=== PATIENT | female | born 1960 | race African-American/Black ===

== ENCOUNTER 2018-03-13 14:23 | Inpatient (IN) ==
[2018-03-13 15:22] LABS: Apearance,Urine CLOUDY (Clear); Bilirubin,Urine Negative (Negative); Blood, Urine Negative (Negative); Glucose,Urine (UA) Negative (Negative); Ketones,Urine Negative (Negative); Mucus,Urine Moderate /LPF (Occasional); Nitrite,Urine Negative (Negative); Protein,Urine Negative; RBC,Urine 2 /HPF (0-4); Squamous Epithelial Cell,Urine Occasional /HPF (0-10); Urine Color Yellow (Yellow); Urine Specific Gravity 1.021 (1.001-1.035); Urine Urobilinogen < 2.0 EU/DL (0.2-1.0); WBC,Urine 1 /HPF (0-6)
[2018-03-13 15:41] LABS: Basophils % 0.2 % (0.0-0.8); Hematocrit 41.9 VOL% (35.7-47.0); Hemoglobin 12.8 GM/DL (12.0-16.0); Immature Granulocytes % 0.4 %; Immature Granulocytes Absolute 0.03 #; Lymphocytes # 0.3 10*3/uL (1.4-4.0); Lymphocytes % 4.1 % (21.3-54.2); Mean Corpuscular HGB Conc 30.5 GM/DL (32-36); Mean Corpuscular Hemoglobin 25 PG (27-34); Mean Corpuscular Volume 82.3 FL (87-102); Mean Platelet Volume 10.5 FL (9.6-12.0); Monocytes # 0.6 10*3/uL (0.11-0.8); Monocytes % 6.8 % (1.7-12.7); Neutrophils # 7.2 10*3/uL (1.4-7.4); Neutrophils % 88.5 % (38.7-73.9); Platelet Count 222 T/CUMM (130-400); Red Blood Count 5.09 MC/CUMM (3.8-5.5); Red Cell Distribution Width 18.8 % (9.3-17.3); White Blood Count 8.1 T/CUMM (4-12)
[2018-03-13 16:02] LABS: Band Neutrophils 3 % (0-10); Hypochromasia 1+; Lymphocytes 6 % (20-55); Platelet Estimate Adequate; Segmented Neutrophils 83 % (50-85); Total Cells Counted 100
[2018-03-13 16:05] LABS: Alanine Aminotransferase 22 U/L (13-56); Albumin 3.1 G/DL (3.4-5.0); Alkaline Phosphatase 77 U/L (45-117); Aspartate Amino Transferase 18 U/L (0-37); Bilirubin,Total < 0.39 MG/DL (0.2-1.0); Blood Urea Nitrogen 38 MG/DL (7-18); Glucose 129 MG/DL (74-106); Potassium 4.2 MMOL/L (3.5-5.1); Sodium 143 MMOL/L (136-145); Total Protein 8.4 G/DL (6.4-8.3)
[2018-03-13] MEDS ORDERED: LEVOFLOXACIN INJ 500 MG in PREMIX 1 EACH IV STA (16:05)
[2018-03-13] MEDS ORDERED: SODIUM CHLORIDE 0.9% 1,000 ML IV STA (16:05)
[2018-03-13] MEDS ORDERED: SODIUM CHLORIDE 0.9% 1,350 ML IV ONE (16:33)
[2018-03-13] MEDS ORDERED: ACETAMINOPHEN 650 MG SUPP RECTAL ONE (16:42)
[2018-03-13] MEDS ORDERED: PIPERACILLIN/TAZOBACTAM 3,375 MG in SODIUM CHLORIDE 0.9% 100 ML IV SCH (17:00)
[2018-03-13] MEDS ORDERED: ACETAMINOPHEN 650 MG SUPP RECTAL STA (17:22)
[2018-03-13] MEDS ORDERED: ACETAMINOPHEN 650 MG SUPP RECTAL PRN (17:37)
[2018-03-13] MEDS ORDERED: VANCOMYCIN INJ 1,000 MG in SODIUM CHLORIDE 0.9% 250 ML IV ONE (18:00)
[2018-03-13] MEDS: LACTATED RINGERS 1,000 ML IV SCH (19:00)
[2018-03-14] MEDS ORDERED: LORazepam 2 MG/1 ML VIAL IV PRN (01:26)
[2018-03-14] MEDS: LACTATED RINGERS 1,000 ML IV SCH ×4 (03:00→19:10)
[2018-03-14] MEDS ORDERED: LEVOFLOXACIN INJ 750 MG in PREMIX 1 EACH IV SCH (18:00)
[2018-03-14] MEDS ORDERED: VANCOMYCIN INJ 750 MG in SODIUM CHLORIDE 0.9% 250 ML IV SCH (18:00)
[2018-03-15] MEDS: LACTATED RINGERS 1,000 ML IV SCH (03:10)
[2018-03-15 06:07] LABS: Basophils % 0.2 % (0.0-0.8); Eosinophils % 0.3 % (0.00-10.9); Hemoglobin 10.9 GM/DL (12.0-16.0); Immature Granulocytes % 0.3 %; Immature Granulocytes Absolute 0.02 #; Lymphocytes # 1.1 10*3/uL (1.4-4.0); Lymphocytes % 19.2 % (21.3-54.2); Mean Corpuscular HGB Conc 30.3 GM/DL (32-36); Mean Corpuscular Hemoglobin 25 PG (27-34); Mean Corpuscular Volume 81.8 FL (87-102); Mean Platelet Volume 11.5 FL (9.6-12.0); Monocytes # 0.4 10*3/uL (0.11-0.8); Monocytes % 6.4 % (1.7-12.7); Neutrophils # 4.2 10*3/uL (1.4-7.4); Neutrophils % 73.6 % (38.7-73.9); Platelet Count 183 T/CUMM (130-400); White Blood Count 5.8 T/CUMM (4-12)
[2018-03-15 06:18] LABS: Calcium 9.1 MG/DL (8.5-10.1); Potassium 3.5 MMOL/L (3.5-5.1)
[2018-03-15 07:39] VITALS: BP 154/86
== END 2018-03-15 10:48 | DRG 871 ==
LOC: EDBD → EDUNIT# → N.ED 14:23 → SUATTDRO 16:39 → N.EDINP 17:07 → N.CC 17:48 → N.5E 03-14 12:10
PROVIDERS: ADMIT Internal Medicine; ATTEND Family Medicine

== ENCOUNTER 2019-01-29 16:06 | Inpatient (IN) ==
[2019-01-29] MEDS ORDERED: PANTOPRAZOLE 40 MG VIAL IV STA (16:33)
[2019-01-29] MEDS ORDERED: SODIUM CHLORIDE 0.9% 1,000 ML IV STA (16:33)
[2019-01-29] MEDS ORDERED: ONDANSETRON 4 MG/2 ML VIAL IV STA (16:33)
[2019-01-29] MEDS ORDERED: METOCLOPRAMIDE 10 MG/2 ML VIAL IV STA (16:33)
[2019-01-29 17:12] LABS: Basophils % 0.3 % (0.0-0.8); Hematocrit 42.4 VOL% (35.7-47.0); Hemoglobin 13.6 GM/DL (12.0-16.0); Immature Granulocytes % 0.7 %; Immature Granulocytes Absolute 0.02 #; Lymphocytes # 0.6 10*3/uL (1.4-4.0); Lymphocytes % 19.5 % (21.3-54.2); Mean Corpuscular HGB Conc 32.1 GM/DL (32-36); Mean Corpuscular Volume 83.5 FL (87-102); Mean Platelet Volume 11.9 FL (9.6-12.0); Monocytes % 18.2 % (1.7-12.7); Neutrophils % 61.3 % (38.7-73.9); Platelet Count 156 T/CUMM (130-400); Red Blood Count 5.08 MC/CUMM (3.8-5.5); Red Cell Distribution Width 14.8 % (9.3-17.3)
[2019-01-29] MEDS ORDERED: hydrALAZINE 20 MG/1 ML VIAL IV STA (17:26)
[2019-01-29 17:33] LABS: Albumin 4.1 G/DL (3.4-5.0); Calcium 10.2 MG/DL (8.5-10.1); Osmolality,Calculated 300.3 MOS/KG (273-304); Total Protein 9.1 G/DL (6.4-8.3)
[2019-01-29 17:35] LABS: Apearance,Urine Slightly Hazy (Clear); Bacteria,Urine Few /HPF (Few); Bilirubin,Urine Negative (Negative); Blood, Urine Negative (Negative); Glucose,Urine (UA) Negative (Negative); Ketones,Urine Negative (Negative); Mucus,Urine Occasional /LPF (Occasional); Nitrite,Urine Negative (Negative); Protein,Urine 30 MG/DL; RBC,Urine 2 /HPF (0-4); Squamous Epithelial Cell,Urine Occasional /HPF (0-10); Urine Specific Gravity 1.019 (1.001-1.035); WBC,Urine 2 /HPF (0-6)
[2019-01-29 17:36] LABS: Urine Color Yellow (Yellow)
[2019-01-29 17:41] LABS: Lymphocytes 13 % (20-55); Platelet Estimate Normal; Segmented Neutrophils 76 % (50-85); Total Cells Counted 100
[2019-01-29] MEDS ORDERED: ACETAMINOPHEN 500 MG TABLET PO PRN (17:58)
[2019-01-29] MEDS ORDERED: hydrALAZINE 20 MG/1 ML VIAL IV PRN (18:27)
[2019-01-29] MEDS ORDERED: HALOPERIDOL 5 MG/ML AMP IM STA ×2 (18:42)
[2019-01-29] MEDS ORDERED: LORazepam 2 MG/1 ML VIAL ONE (18:58)
[2019-01-29] MEDS ORDERED: LORazepam 2 MG/1 ML VIAL IM STA (19:01)
[2019-01-29] MEDS: ONDANSETRON 4 MG/2 ML VIAL IV PRN (20:31)
[2019-01-29] MEDS: SODIUM CHLORIDE 0.9% 1,000 ML IV SCH (20:52)
[2019-01-29] MEDS ORDERED: DIVALPROEX ER 500 MG TABLET PO SCH (21:00)
[2019-01-29] MEDS ORDERED: traZODone 50 MG TABLET PO SCH (21:00)
[2019-01-29] MEDS: DEUTETRABENAZINE 12 MG PO SCH (22:20)
[2019-01-29] MEDS: AMANTADINE 100 MG CAPSULE PO SCH (22:22)
[2019-01-30] MEDS: ONDANSETRON 4 MG/2 ML VIAL IV PRN ×2 (04:08→09:10)
[2019-01-30 06:33] LABS: Basophils % 0.4 % (0.0-0.8); Eosinophils % 0.4 % (0.00-10.9); Hematocrit 41.5 VOL% (35.7-47.0); Hemoglobin 13.6 GM/DL (12.0-16.0); Immature Granulocytes % 1.1 %; Immature Granulocytes Absolute 0.03 #; Lymphocytes # 0.3 10*3/uL (1.4-4.0); Lymphocytes % 9.9 % (21.3-54.2); Mean Corpuscular HGB Conc 32.8 GM/DL (32-36); Mean Corpuscular Volume 83.3 FL (87-102); Mean Platelet Volume 11.7 FL (9.6-12.0); Monocytes % 27.8 % (1.7-12.7); Neutrophils % 60.4 % (38.7-73.9); Platelet Count 145 T/CUMM (130-400); Red Blood Count 4.98 MC/CUMM (3.8-5.5); Red Cell Distribution Width 15.1 % (9.3-17.3); White Blood Count 2.7 T/CUMM (4-12)
[2019-01-30 06:42] LABS: INR 1.1
[2019-01-30 06:52] LABS: Calcium 9.4 MG/DL (8.5-10.1); Osmolality,Calculated 306.8 MOS/KG (273-304)
[2019-01-30 07:18] LABS: Anisocytosis 1+; Band Neutrophils 36 % (0-10); Eosinophils 1 % (0-10); Lymphocytes 18 % (20-55); Macrocytosis Slight; Metamyelocytes 6 %; Myelocytes 4 %; Platelet Estimate Adequate; Segmented Neutrophils 9 % (50-85); Total Cells Counted 100
[2019-01-30 07:19] LABS: Atypical Lymphocytes Few; Smudge Cells Few
[2019-01-30] MEDS ORDERED: INFLUENZA VIRUS VACCINE 0.5 ML SYRINGE IM ONE (08:28)
[2019-01-30] MEDS ORDERED: PANTOPRAZOLE 40 MG TABLET PO SCH (09:00)
[2019-01-30] MEDS ORDERED: ASPIRIN CHEW 81 MG TABLET PO SCH (09:00)
[2019-01-30] MEDS ORDERED: MULTIVITAMIN (CENTRUM) TABLET PO SCH (09:00)
[2019-01-30] MEDS: AMANTADINE 100 MG CAPSULE PO SCH (09:07)
[2019-01-30] MEDS: DEUTETRABENAZINE 12 MG PO SCH (09:08)
[2019-01-30] MEDS: SODIUM CHLORIDE 0.9% 1,000 ML IV SCH (10:05)
[2019-01-30] MEDS ORDERED: PANTOPRAZOLE 40 MG VIAL IV SCH (10:30)
[2019-01-30] MEDS ORDERED: LORazepam 2 MG/1 ML VIAL IV ONE (11:10)
[2019-01-30] MEDS ORDERED: SODIUM BICARBONATE 50 MEQ/50 ML SYRINGE IV ONE (11:32)
[2019-01-30] MEDS ORDERED: EPINEPHrine 1 MG/10 ML SYRINGE ONE ×3 (11:32→13:18)
[2019-01-30] MEDS ORDERED: SODIUM CHLORIDE 0.9% 1,000 ML IV ONE (12:01)
[2019-01-30 12:11] LABS: Basophils % 1.3 % (0.0-0.8); Eosinophils % 0.8 % (0.00-10.9); Hematocrit 39.6 VOL% (35.7-47.0); Hemoglobin 12.4 GM/DL (12.0-16.0); Immature Granulocytes % 13.9 %; Immature Granulocytes Absolute 0.33 #; Lymphocytes % 40.9 % (21.3-54.2); Mean Corpuscular HGB Conc 31.3 GM/DL (32-36); Mean Platelet Volume 12.6 FL (9.6-12.0); Monocytes % 12.2 % (1.7-12.7); NRBC # 0.02 10*3/uL; Neutrophils % 30.9 % (38.7-73.9); Platelet Count 126 T/CUMM (130-400); Red Blood Count 4.55 MC/CUMM (3.8-5.5); Red Cell Distribution Width 15.2 % (9.3-17.3); White Blood Count 2.4 T/CUMM (4-12)
[2019-01-30 12:19] VITALS: BP 159/99
[2019-01-30] MEDS ORDERED: HEPARIN/NACL 0.9% 2 UNITS/ML 500 ML IV ONE (12:19)
[2019-01-30 12:20] LABS: Osmolality,Calculated 339.5 MOS/KG (273-304)
[2019-01-30] MEDS ORDERED: DEXTROSE 5% 1,000 ML IV SCH (12:30)
[2019-01-30] MEDS ORDERED: MEROPENEM 500 MG in SODIUM CHLORIDE 0.9% 100 ML IV SCH (12:30)
[2019-01-30] MEDS ORDERED: PHENYLEPHRINE DRIP 40 MG/250 ML PREMIX IV ONE (12:44)
[2019-01-30 12:55] LABS: Anisocytosis 1+; Band Neutrophils 6 % (0-10); Lymphocytes 64 % (20-55); Metamyelocytes 8 %; Myelocytes 9 %; Nucleated Red Blood Cells 6 (0-5); Platelet Estimate Adequate; Total Cells Counted 100
[2019-01-30 12:56] LABS: Hypochromasia Slight; Target Cells Few
[2019-01-30 12:57] LABS: Atypical Lymphocytes 1+
[2019-01-30] MEDS ORDERED: PHENYLEPHRINE DRIP 40 MG/250 ML PREMIX IV PRN (13:02)
[2019-01-30] MEDS ORDERED: PHENYLEPHRINE 50 MG/5 ML VIAL IV PRN (13:02)
[2019-01-30] MEDS ORDERED: ATROPINE 1 MG/10 ML SYRINGE IV ONE (13:05)
[2019-01-30] MEDS ORDERED: ATROPINE 1 MG/10 ML SYRINGE ONE (13:06)
[2019-01-30] MEDS ORDERED: metroNIDAZOLE INJ 500 MG in PREMIX 1 EACH IV SCH (13:30)
[2019-01-30 13:35] LABS: ABG Base Excess -14.3 MMOL/L (-2.5-2.5); ABG HCO3 13.3 MMOL/L (20-26); ABG Oxygen Saturation 98.6 % (95-100); ABG PCO2 38.2 MM HG (35-48); ABG PO2 236.7 MM HG (80-95); ABG TCO2 14.5 MMOL/L (23-27)
[2019-01-30 13:36] LABS: ABG Base Excess -11.6 MMOL/L (-2.5-2.5); ABG HCO3 15.3 MMOL/L (20-26); ABG Oxygen Saturation 98.9 % (95-100); ABG PCO2 47.7 MM HG (35-48); ABG TCO2 16.1 MMOL/L (23-27)
[2019-01-30 13:37] LABS: ABG PH 7.157 (7.35-7.45)
[2019-01-30 13:38] LABS: ABG PH 7.161 (7.35-7.45)
[2019-01-30] MEDS ORDERED: SODIUM CHLORIDE 0.9% 1,000 ML IV PRN (14:12)
[2019-01-30 14:30] LABS: Hematocrit 24.9 VOL% (35.7-47.0); Hemoglobin 7.5 GM/DL (12.0-16.0); Immature Granulocytes % 6.7 %; Immature Granulocytes Absolute 0.03 #; Lymphocytes # 0.3 10*3/uL (1.4-4.0); Lymphocytes % 66.7 % (21.3-54.2); Mean Corpuscular HGB Conc 30.1 GM/DL (32-36); Mean Corpuscular Volume 91.2 FL (87-102); Mean Platelet Volume 11.7 FL (9.6-12.0); Monocytes % 2.2 % (1.7-12.7); Neutrophils % 24.4 % (38.7-73.9); Platelet Count 60 T/CUMM (130-400); Red Blood Count 2.73 MC/CUMM (3.8-5.5); Red Cell Distribution Width 15.5 % (9.3-17.3)
[2019-01-30 14:35] LABS: INR 2.1; White Blood Count 0.5 T/CUMM (4-12)
[2019-01-30 14:38] LABS: PT Patient Result 23.1 SECS (9.6-12.2)
[2019-01-30 14:58] LABS: Band Neutrophils 5 % (0-10); Lymphocytes 80 % (20-55); Metamyelocytes 10 %; Nucleated Red Blood Cells 2 (0-5); Total Cells Counted 100
[2019-01-30 14:59] LABS: Poikilocytosis 1+; Schistocytes Few; Spherocytes Slight
[2019-01-30 15:00] LABS: Burr Cells Slight
[2019-01-30 15:01] LABS: Platelet Estimate Decreased
== END 2019-01-30 14:33 | disposition expired | DRG 388 ==
LOC: EDUNIT# → EDBD → N.EDINP 16:06 → N.ED 16:06 → SUATTDRO 18:20 → N.4E 20:11 → N.ICU 01-30 11:50
PROVIDERS: ADMIT Internal Medicine; ATTEND Internal Medicine